=== PATIENT | male | born 1965 | race Caucasian/White ===

== ENCOUNTER 2023-01-07 11:06 | Emergency (ER) | payer OTHER ==
[~2023-01-07] VITALS: Ht 167.6 cm; Wt 67.1 kg
== END 2023-01-07 14:31 | disposition home or self-care (01) ==
LOC: ER 11:06
DX: N23 Unspecified renal colic (principal)

== ENCOUNTER 2023-01-25 14:13 | Outpatient (CLI) | payer OTHER | END 2023-01-25 14:20 | disposition home or self-care (01) | LOC: LAB 14:13 | DX: M50.20 Other cervical disc displacement, unspecified cervical region (principal) ==

== ENCOUNTER 2023-02-12 11:46 | Outpatient (CLI) | payer OTHER | END 2023-02-12 12:01 | disposition home or self-care (01) | LOC: MRI 11:46 | PROVIDERS: ATTEND Neuromusculoskeletal Medicine & OMM | DX: M50.20 Other cervical disc displacement, unspecified cervical region (principal); M50.30 Other cervical disc degeneration, unspecified cervical region; R51.9 Headache, unspecified; G43.009 Migraine without aura, not intractable, without status migrainosus; R41.3 Other amnesia | CPT/HCPCS: 70551; 72141 ==

== ENCOUNTER 2024-06-01 10:34 | Outpatient (CLI) | payer OTHER | END 2024-06-01 10:35 | disposition home or self-care (01) | LOC: NUCLEAR 10:34 | PROVIDERS: ATTEND Internal Medicine | DX: I73.9 Peripheral vascular disease, unspecified (principal); I87.2 Venous insufficiency (chronic) (peripheral) ==

== ENCOUNTER 2024-06-02 10:52 | Outpatient (CLI) | payer OTHER | END 2024-06-02 10:53 | disposition home or self-care (01) | LOC: NUCLEAR 10:52 | PROVIDERS: ATTEND Internal Medicine | DX: I87.2 Venous insufficiency (chronic) (peripheral) (principal); I73.9 Peripheral vascular disease, unspecified ==

== ENCOUNTER 2024-08-24 12:45 | Outpatient (CLI) | payer OTHER | END 2024-08-24 13:00 | disposition home or self-care (01) | LOC: MRI 12:45 | PROVIDERS: ATTEND Neuromusculoskeletal Medicine & OMM | DX: F09 Unspecified mental disorder due to known physiological condition (principal); F03.90 Unspecified dementia, unspecified severity, without behavioral disturbance, psychotic disturbance, mood disturbance, and anxiety; R41.3 Other amnesia; G43.009 Migraine without aura, not intractable, without status migrainosus; M50.20 Other cervical disc displacement, unspecified cervical region | CPT/HCPCS: 70551; 72141 ==